=== PATIENT | female | born 1950 | race Caucasian/White ===

== ENCOUNTER 2024-12-28 13:23 | Oncology outpatient (recurring) (ONCR) | payer MEDICARE, OTHER, SELFPAY ==
[2024-12-28] MEDS: denosumab 60 mg SDV SUBCUT (13:52)
[2024-12-28 14:16] VITALS: BP 123/71; PULSE 78; RESP 16; TEMP 36.7; O2SAT 96
== END 2025-01-15 23:59 | disposition home or self-care (01) ==
PROVIDERS: PCP Nurse Practitioner; Visit Provider Nurse Practitioner
DX: M81.0 Age-related osteoporosis without current pathological fracture (principal); Z79.899 Other long term (current) drug therapy
CPT/HCPCS: 96372; J0897

== ENCOUNTER 2025-02-15 05:00 | Outpatient (RCR) | payer MEDICARE, OTHER, SELFPAY | END 2025-03-17 23:59 | disposition home or self-care (01) | LOC: GPT 05:00 | PROVIDERS: Visit Provider Nurse Practitioner | DX: R26.81 Unsteadiness on feet (principal) | CPT/HCPCS: 97112; 97162 ==

== ENCOUNTER 2025-03-18 05:00 | Outpatient (RCR) | payer MEDICARE, OTHER, SELFPAY | END 2025-04-16 23:59 | disposition home or self-care (01) | LOC: GPT 05:00 | PROVIDERS: Visit Provider Nurse Practitioner | DX: R26.81 Unsteadiness on feet (principal); M62.81 Muscle weakness (generalized) | CPT/HCPCS: 97110; 97112; 97140; 97164; 97530 ==

== ENCOUNTER 2025-06-26 08:43 | Oncology outpatient (recurring) (ONCR) | payer MEDICARE, OTHER, SELFPAY ==
[2025-06-26] MEDS: denosumab 60 mg SDV (Infusion Clinic Only) SUBCUT (09:05)
== END 2025-07-17 23:59 | disposition home or self-care (01) ==
PROVIDERS: Visit Provider Nurse Practitioner
DX: M81.0 Age-related osteoporosis without current pathological fracture (principal); Z79.899 Other long term (current) drug therapy
CPT/HCPCS: 96372; J0897